=== PATIENT | male | born 1960 | race Caucasian/White ===

== ENCOUNTER → 2017-01-03 | Outpatient (CLI) | payer BC | END | disposition home or self-care (01) | LOC: LABWHC1 07:41 | PROVIDERS: ATTEND Family Medicine | DX: E87.6 Hypokalemia (principal) | CPT/HCPCS: 36415; 84132 ==

== ENCOUNTER → 2017-03-20 | Outpatient (CLI) | payer BC ==
--- NOTE | 2017-03-20 09:48 | CT ---
EXAMINATION TYPE: CT abdomen pelvis w con DATE OF EXAM: 03/20/2017 COMPARISON: NONE INDICATION: Abnormal weight loss DLP: 455.70 mGycm, Automated exposure control for dose reduction was used. CONTRAST: 100 mL of Omnipaque 300. Study performed with Oral Contrast TECHNIQUE: Axial images were obtained from above the diaphragm to the pubic rami in the axial plane a t 5 mm thick sections. Reconstructed images are reviewed on the computer in the coronal plane. FINDINGS: Limited CT sections are obtained the lung bases. The lung bases are clear. CT ABDOMEN: Liver: Normal Spleen: Absent Pancreas: Normal Adrenal glands: The adrenal glands are normal. Gallbladder: Surgically absent. Kidneys: No masses are evident. There is mild bilateral prominence of the renal pelves. There is mild prominence of the right ureter to the mid pelvis. No distal obstructing ureteral stone is evident. N o cysts are present. Delayed images were obtained through the kidneys, which remain unremarkable. Aorta: Vascular calcification is within the aorta. Inferior vena cava: Normal. CT PELVIS: Some mild wall thickening within the sigmoid colon may be present diffusely. As could be related to i ncomplete distention. Peristalsis may be within the mid sigmoid colon. Series 3 image 69. Follow-up i s recommended. Underlying apple core lesion is not excluded. No suspicious adjacent inflammatory toledo ges are evident. There are loops of bowel which are incompletely distended or lack oral contrast limi ting their evaluation. Appendix: Not identified Urinary bladder: Normal. Genitourinary structures: Prostate is prominent. Osseous structures: No suspicious lytic or sclerotic lesions. IMPRESSIONS: 1. Mild diffuse wall thickening within the sigmoid colon. Some more focal thickening could be relate d to peristalsis or a neoplasm. Follow-up is recommended. Consider sigmoidoscopy. 2. Prominence of the proximal and mid right ureter. No obstructing ureteral stone is identified.
== END | disposition home or self-care (01) ==
LOC: RADCTMAIN 06:49
PROVIDERS: ATTEND Family Medicine
DX: K63.89 Other specified diseases of intestine (principal)
CPT/HCPCS: 74177; Q9967

== ENCOUNTER 2017-04-16 06:20 | Day surgery (SDC) | payer BC ==
[2017-04-15 08:37] VITALS: BMI 22.6
[~2017-04-16 06:20] MED LIST: LACTATED RINGERS 1,000 ML IV SCH
[2017-04-16 07:05] VITALS: RESP 18; TEMP 97.4
[2017-04-16] MEDS ORDERED: IV FLUID CONTINUATION 1,000 ML IV ONE (07:06)
[2017-04-16] MEDS ORDERED: LACTATED RINGERS 1,000 ML IV ONE ×2 (07:06→07:22)
[2017-04-16] MEDS ORDERED: fentaNYL (PF) 50 MCG/ML 2 ML AMP ONE (07:20)
[2017-04-16] MEDS ORDERED: PROPOFOL 10 MG/ML 20 ML VIAL IV ONE (07:20)
[2017-04-16] MEDS ORDERED: LIDOCAINE 1% INJ 10MG/ML (20 ML MDV) ONE (07:20)
[2017-04-16 07:57] VITALS: BP 132/95; PULSE 80
--- NOTE | 2017-04-16 07:59 | PCN ---
PROCEDURE NOTE DATE OF SERVICE: 04/16/2017 PROCEDURE: Bone marrow aspirate and biopsy. SITE: Right iliac crest. PREOP DIAGNOSIS: Thrombocytosis. POSTOP DIAGNOSIS: Thrombocytosis. ANESTHESIA: Local with IV systemic sedation. DETAIL: Utilizing sterile technique, the skin overlying the right iliac crest was prepared with Betadine and alcohol. After adequate sterile draping, local anesthesia and systemic sedation, a size 11, 4-inch Jamshidi needle was utilized to access the periosteum . A total of 16 mL of aspirate and 2 cm bone core biopsies were obtained. The patient tolerated the procedure well. There was no immediate procedure related complications. Total blood loss less than 1 mL. RESULTS: Pending. MMODL / IJN: [id number] /
[2017-04-16 09:01] LABS: Basophils # (A) 0.1 k/uL (0-0.2); Basophils % (A) 1 %; CH 31.3; CHCM 35.5; Eosinophils # (A) 0.2 k/uL (0-0.7); Eosinophils % (A) 2 %; HCT 44.7 % (39.0-53.0); HDW 3.24; Luc # (Auto) 0.25; Luc % (Auto) 2; Lymphocytes # (A) 2.8 k/uL (1.0-4.8); Lymphocytes % (A) 22 %; MCH 31.7 pg (25.0-35.0); MCHC 35.8 g/dL (31.0-37.0); MCV 88.6 fL (80.0-100.0); Mean Platelet Volume 8.6; Monocytes # (A) 0.9 k/uL (0-1.0); Monocytes % (A) 7 %; Neutrophils # (A) 8.5 k/uL (1.3-7.7); Neutrophils % (A) 67 %; RBC 5.04 m/uL (4.30-5.90); RDW 13.4 % (11.5-15.5); WBC 12.8 k/uL (3.8-10.6); WBC (Perox) 12.68
== END 2017-04-16 08:07 | disposition home or self-care (01) ==
LOC: OR 06:20
PROVIDERS: ATTEND Internal Medicine Hematology & Oncology
DX: D47.3 Essential (hemorrhagic) thrombocythemia (principal); D72.828 Other elevated white blood cell count; D72.0 Genetic anomalies of leukocytes; D64.9 Anemia, unspecified; R86.9 Unspecified abnormal finding in specimens from male genital organs; K50.90 Crohn's disease, unspecified, without complications; Z87.891 Personal history of nicotine dependence; Z79.891 Long term (current) use of opiate analgesic; Z88.0 Allergy status to penicillin
CPT/HCPCS: 85025; 38221; J2001; J3010; J2704; G0364

== ENCOUNTER 2018-12-10 14:59 | Emergency (ER) | payer BC ==
[2018-12-10 15:10] VITALS: RESP 18
[2018-12-10] MEDS ORDERED: SODIUM CHLORIDE 0.9% 500 ML 500 ML IV ONE (15:18)
[2018-12-10] MEDS ORDERED: MORPHINE SULFATE 4 MG/ML SYRINGE IVP STA (15:23)
[2018-12-10 15:45] LABS: Albumin 4.6 g/dL (3.5-5.0); Calcium 9.9 mg/dL (8.4-10.2); Potassium 3.2 mmol/L (3.5-5.1); Total Protein 7.6 g/dL (6.3-8.2)
[2018-12-10 16:11] LABS: Basophils # (A) 0.1 k/uL (0-0.2); Basophils % (A) 1 %; Eosinophils # (A) 0.2 k/uL (0-0.7); Eosinophils % (A) 1 %; HCT 44.4 % (39.0-53.0); HGB 15.3 gm/dL (13.0-17.5); Hyperchromasia Slight; Lymphocytes # (A) 3.2 k/uL (1.0-4.8); Lymphocytes % (A) 18 %; MCHC 34.5 g/dL (31.0-37.0); Mean Platelet Volume 7.6; Monocytes % (A) 6 %; Neutrophils # (A) 13.7 k/uL (1.3-7.7); Neutrophils % (A) 74 %; Platelet Count 535 k/uL (150-450); RBC 5.11 m/uL (4.30-5.90); RDW 14.5 % (11.5-15.5); WBC 18.5 k/uL (3.8-10.6)
[2018-12-10 16:32] LABS: Appearance,Urine Clear (Clear); Bilirubin,Urine Negative (Negative); Blood,Urine Large (Negative); Color,Urine Yellow; Glucose,Urine (UA) Negative (Negative); Ketones,Urine Negative (Negative); Leukocyte Esterase,Urine Trace (Negative); Mucus,Urine Rare /hpf; Nitrite,Urine Negative (Negative); Protein,Urine 1+ (Negative); RBC,Urine >182 /hpf (0-5); Specific Gravity,Urine 1.017 (1.001-1.035); Urobilinogen,Urine <2.0 mg/dL (<2.0); WBC,Urine 11 /hpf (0-5)
--- NOTE | 2018-12-10 16:46 | CT ---
EXAMINATION TYPE: CT abdomen pelvis wo con DATE OF EXAM: 12/10/2018 COMPARISON: 03/20/2017 HISTORY: Left sided pain CT DLP: 420.7 mGycm Automated exposure control for dose reduction was used. TECHNIQUE: Helical acquisition of images was performed from the lung bases through the pelvis. FINDINGS: Lung bases are clear of infiltrate. There is no pleural effusion. There is no pericardial effusion. S tomach appears normal. Spleen is absent. There is no evidence of pancreatic mass. There are clips fro m cholecystectomy. Bile ducts are not dilated. Liver shows no focal defect. There is no adrenal mass. Kidneys have normal size. There is left-sided hydronephrosis and hydrourete r. There is 4 mm calculus in the proximal left ureter. This is at the L4 level. There is no retroperi toneal adenopathy. Bladder is almost empty. There is prostatic calcification. There is no inguinal he rnia. There is no free fluid in the pelvis. There are surgical clips from small bowel surgery. There are multiple surgical clips involving the transverse colon. I see no calculi within the kidneys. There is no ascites. There is no free air. There is no mesenteric edema. There is mild wall thickenin g of the sigmoid colon. I see no bony destructive process. There is old fracture of the intertrochanteric left femur. IMPRESSION: THERE IS SMALL OBSTRUCTING CALCULUS IN THE PROXIMAL LEFT URETER WITH LEFT-SIDED HYDRONEPHROSIS AND WA OXIMAL HYDROURETER. OBSTRUCTION IS NEW COMPARED TO OLD EXAM. PREVIOUS INTESTINAL SURGERY. MILD WALL THICKENING OF THE SIGMOID COLON IS A CHANGE COMPARED TO OLD EX AM AND COULD RELATE TO NONSPECIFIC MILD COLITIS.
[2018-12-10] MEDS ORDERED: HYDROmorphone 1 MG/ML 1 ML SYRINGE IVP STA (16:49)
[2018-12-10] MEDS ORDERED: ONDANSETRON 4 MG/2 ML VIAL IVP STA (16:50)
[2018-12-10] MEDS ORDERED: KETOROLAC 30 MG/ML 1 ML VIAL IVP STA (16:51)
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
[2018-12-10 18:34] VITALS: BP 133/92; PULSE 71; TEMP 97.4
== END 2018-12-10 18:48 | disposition home or self-care (01) ==
LOC: EC 14:59
DX: N20.0 Calculus of kidney (principal); I10 Essential (primary) hypertension; Z87.19 Personal history of other diseases of the digestive system; Z98.890 Other specified postprocedural states; Z90.49 Acquired absence of other specified parts of digestive tract; Z87.891 Personal history of nicotine dependence; Z88.0 Allergy status to penicillin
CPT/HCPCS: 36415; 80053; 82150; 83690; 85025; 81001; 74176; 99284; 96374; 96375 ×3; J2270; J2405; J1885; J1170

== ENCOUNTER → 2022-04-22 | Outpatient (CLI) | payer BC ==
[~2022-04-22] MED LIST changes: +COSYNTROPIN 0.25 MG VIAL IVP ONE; -LACTATED RINGERS 1,000 ML IV SCH; +SODIUM CHLORIDE 0.9% 500 ML 500 ML in EMPTY BAG 1 BAG IV PRN
[2022-04-22 08:05] VITALS: BP 129/79; PULSE 87; RESP 16; TEMP 97.8
== END ==
LOC: PROCWHC3 07:09
PROVIDERS: ATTEND Family Medicine
DX: R53.83 Other fatigue (principal); Z88.0 Allergy status to penicillin; Z87.891 Personal history of nicotine dependence
CPT/HCPCS: 82533; 82024; 96374; J0834

== ENCOUNTER → 2022-05-02 | Day surgery (SDC) | payer BC ==
[2022-04-30 14:58] VITALS: BMI 20.7
[~2022-05-02] MED LIST changes: -COSYNTROPIN 0.25 MG VIAL IVP ONE; +LACTATED RINGERS 1,000 ML IV SCH; +LIDOCAINE 2% INJ 20 MG/ML (2 ML VIAL) ONE; +PROPOFOL 10 MG/ML 20 ML VIAL IV ONE; -SODIUM CHLORIDE 0.9% 500 ML 500 ML in EMPTY BAG 1 BAG IV PRN
[2022-05-02 12:05] VITALS: TEMP 97
--- NOTE | 2022-05-02 13:04 | P.PCN ---
Date of Procedure: 05/02/22 Procedure(s) Performed: BRIEF HISTORY: Patient is a 61-year-old, pleasant, male scheduled for an upper endoscopy as a part of evaluation of abdominal discomfort/weight loss.. PROCEDURE PERFORMED: Esophagogastroduodenoscopy with biopsy. PREOPERATIVE DIAGNOSIS: Abdominal discomfort in the. IV sedation per anesthesia. PROCEDURE: After informed consent was obtained, the patient was brought into the endoscopy unit. IV sedation was administered by Anesthesia under continuous monitoring. Initially the Olympus GIF-140 video endoscope was inserted into the mouth. Esophagus intubated without any difficulty. It was gradually advanced into the stomach and duodenum and carefully examined. The bulb and the second part of the duodenum appeared normal. The scope at this time was withdrawn to the stomach, adequately insufflated with air, and upon careful examination, mucosa of the antrum, had mild gastritis and biopsies were done from this area. The body, cardia and the fundus appeared normal. The scope was then withdrawn into the esophagus. The GE junction was located at 39 cm from the incisors. T here was circumferential erythema the GE junction with 2 superficial erosions consistent with LA grade B reflux esophagitis. The rest of esophagus appeared normal and the patient tolerated the procedure well. IMPRESSION: 1. Circumferential erythema of the GE junction with 2 superficial erosions consistent with LA grade B reflux esophagitis. 2. Mild antral gastritis. RECOMMENDATIONS: The findings of this examination were discussed with the patient as well as his family. He was advised to follow with the biopsy results. He was advised to use [id number] H2 blockers as her for reflux symptoms..
[2022-05-02 13:11] VITALS: RESP 16
[2022-05-02 13:20] VITALS: BP 152/80; PULSE 80
== END ==
LOC: ORWHC2ENDO 11:01
PROVIDERS: ATTEND Internal Medicine Gastroenterology
DX: K29.50 Unspecified chronic gastritis without bleeding (principal); K25.7 Chronic gastric ulcer without hemorrhage or perforation; K20.0 Eosinophilic esophagitis; K50.90 Crohn's disease, unspecified, without complications; I10 Essential (primary) hypertension; F12.90 Cannabis use, unspecified, uncomplicated; Z88.0 Allergy status to penicillin; Z79.01 Long term (current) use of anticoagulants; Z79.899 Other long term (current) drug therapy
CPT/HCPCS: 88305; 43239; J2704; J2001

== ENCOUNTER → 2022-05-09 | Outpatient (CLI) | payer BC ==
--- NOTE | 2022-05-09 12:45 | CA ---
Exercise Stress Test Report Name: Jose Portillo Exam Date: 05/09/2022 10:57 Exam Location: [place] Stress Ht (in): Wt (lb): BSA: Ordering Phys: Tal Rooney DO Referring Phys: ROONEY Technologist: John Watts Age: 61 Gender: M : 1960 Procedure CPT: Indications: I49.3 ventricular premature depolarization ICD-10 Codes: Patient History: Shortness of breath Medications: LISINOPRIL,,,,, Meds past 24 hrs: Pretest Chest Pain: STRESS TEST Ray Protocol Exercise Duration (min:sec): 08:[address] Depressions (mm): Angina Score: Santizo Score: Resting HR (bpm): 76 Peak HR (bpm): 148 Resting BP (mmHg): 141 / 101 Peak BP (mmHg): 208 / 94 MPHR: 161 Target HR: 137 % MPHR: 92 METS: 10.3 Total Dose: Peak Dose: Atropine: Double Product: 44754 BP Response: Stress Termination: TARGET HR REACHED/MAX EXERTION Stress Symptoms: NO SYMPTOMS Stress Summary: ECG ANALYSIS Resting ECG: Stress ECG: CONCLUSIONS Excellent exercise tolerance Normal EKG in response to exercise Essentially normal stress test for the patient Dr. Michael Franklin MD (Electronically Signed) Final Date: 09 May 2022 12:44
== END | disposition home or self-care (01) ==
LOC: RADNMMAIN 10:20
PROVIDERS: ATTEND Family Medicine
DX: I49.3 Ventricular premature depolarization (principal)
CPT/HCPCS: 93017

== ENCOUNTER → 2022-05-13 | Outpatient (CLI) | payer BC ==
--- NOTE | 2022-05-14 13:29 | CA ---
Transthoracic Echo Report Name: Jose Portillo Age: 61 Gender: M : 1960 Exam Date: 05/13/2022 14:01 Exam Location: [place] Echo Ht (in): 72 Wt (lb): 150 Ordering Physician: Tal Gomez DO Attending/Referring Phys: Electroplating Technician Janessa Alvarado RDCS Procedure CPT: Indications: r53.83 Other Fatigue Cardiac Hx: Technical Quality: Good Contrast 1: Total Dose (mL): Contrast 2: Total Dose (mL): MEASUREMENTS (Male / Female) Normal Values 2D ECHO LV Diastolic Diameter PLAX 4.0 cm 4.2 - 5.9 / 3.9 - 5.3 cm LV Systolic Diameter PLAX 2.7 cm IVS Diastolic Thickness 1.0 cm 0.6 - 1.0 / 0.6 - 0.9 cm LVPW Diastolic Thickness 1.7 cm 0.6 - 1.0 / 0.6 - 0.9 cm LV Relative Wall Thickness 0.7 RV Internal Dim ED PLAX 2.4 cm LA Volume 41.4 cm??? 18 - 58 / 22 - 52 cm??? M-MODE Aortic Root Diameter MM 3.0 cm LA Systolic Diameter MM 2.8 cm LA Ao Ratio MM 0.9 MV E Point Septal Separation 0.3 cm AV Cusp Separation MM 1.6 cm DOPPLER MV Area PHT 3.8 cm??? Mitral E Point Velocity 57.3 cm/s Mitral A Point Velocity 78.3 cm/s Mitral E to A Ratio 0.7 MV Deceleration Time 198.9 ms MV E' Velocity 5.5 cm/s Mitral E to MV E' Ratio 10.4 FINDINGS Left Ventricle Normal left ventricular size, wall thickness, systolic function with no obvious regional wall motion abnormalities. Left ventricular ejection fraction is estimated at 55%. Right Ventricle The right ventricle is normal in size and function. Right Atrium The right atrium is normal in size. Left Atrium The left atrium is normal in size. Mitral Valve Structurally normal mitral valve without significant stenosis or prolapse. There is mild mitral regurgitation. Aortic Valve Structurally normal aortic valve without significant sclerosis or stenosis. There is mild aortic regurgitation. Tricuspid Valve Structurally normal tricuspid valve without significant stenosis. Pulmonary artery systolic pressure is normal. Pulmonic Valve Structurally normal pulmonic valve without significant stenosis. There is no pulmonic regurgitation. Pericardium Normal pericardium without effusion. Aorta Normal aortic root dimension. CONCLUSIONS Normal left ventricular ejection fraction 55% Mild aortic regurgitation Mild mitral regurgitation No pericardial effusion Previewed by: Dr. Michael Turner DO (Electronically Signed) Final Date: 14 May 2022 13:28
== END | disposition home or self-care (01) ==
LOC: RADECHMAIN 13:39
PROVIDERS: ATTEND Family Medicine
DX: I08.0 Rheumatic disorders of both mitral and aortic valves (principal)
CPT/HCPCS: 93306